=== PATIENT | female | born 1955 | race Hispanic/Latino ===

== ENCOUNTER 2022-11-18 18:09 | Emergency (ER) | payer OTHER ==
[~2022-11-18] VITALS: Ht 161.3 cm; Wt 86.2 kg
[~2022-11-18 18:09] MED LIST: AMLODIPINE BESYL5 MG PO; HYDROCODON-ACE1 EAC9 PO; LISINOPRIL10 MG PO; OZEMPIC0.25 MG/0. SC
[2022-11-18 20:34] LABS: BASOPHILS # (AUTO) 0.1 (0.0-0.1); BASOPHILS % 0.6 % (0.0-1.0); EOSINOPHILS # (AUTO) 0.3 (0.0-0.4); EOSINOPHILS % 3.1 % (0.0-6.0); HEMATOCRIT 31.8 % (34.2-44.1); HEMOGLOBIN 10.5 g/dL (12.0-16.0); LYMPHOCYTES # (AUTO) 2.3 (1.0-3.2); LYMPHOCYTES % 28.1 % (18.0-39.1); MEAN CORPUSCULAR HEMOGLOBIN 30.2 pg (28-32); MEAN CORPUSCULAR VOLUME 91.4 fL (81-99); MONOCYTES # (AUTO) 0.6 (0.2-0.8); MONOCYTES % 6.8 % (4.4-11.3); NEUTROPHILS % 60.9 % (38.7-80.0); PLATELET COUNT 306 x10e3/uL (140-360); RED BLOOD COUNT 3.48 x10e6/uL (3.6-5.1); RED CELL DISTRIBUTION WIDTH 12.4 % (11.7-14.4)
[2022-11-18 20:35] LABS: ALBUMIN/GLOBULIN RATIO 1.3 (0.8-2.0); CALCIUM 9.7 mg/dL (8.4-10.2); CREATININE, SERUM 0.73 mg/dL (0.57-1.11)
[2022-11-18 21:13] LABS: CLARITY,URINE CLOUDY (CLEAR); COLOR,URINE YELLOW (YELLOW)
[2022-11-18 21:14] LABS: KETONES,URINE NEGATIVE (NEGATIVE); LEUKOCYTE ESTERASE ,URINE 2+ (NEGATIVE); NITRITE,URINE POSITIVE (NEGATIVE); PROTEIN,URINE DIPSTICK 1+ (NEGATIVE); URINE UROBILINOGEN 0.2 mg/dL (0.2 - 1)
[2022-11-18 21:20] LABS: BACTERIA,URINE MANY /HPF; EPITHELIAL CELLS,URINE FEW /LPF; RBC,URINE 21-50 /HPF (0-5); WBC,URINE (MAN) 21-50 /HPF (0-5)
[2022-11-18] MEDS ORDERED: CEFDINIR300 MG PO (21:35)
[2022-11-18 21:48] VITALS: BP 136/55; PULSE 58; RESP 17; TEMP 98; O2SAT 99
== END 2022-11-18 22:08 | disposition home or self-care (01) ==
LOC: ER 18:16
DX: T83.091A Other mechanical complication of indwelling urethral catheter, initial encounter (principal); N39.0 Urinary tract infection, site not specified; I10 Essential (primary) hypertension; G93.39 Other post infection and related fatigue syndromes
CPT/HCPCS: 36415; 80053; 81001; 85025; 87086; 87186; 99283

== ENCOUNTER 2024-03-02 09:45 | Emergency (ER) | payer OTHER ==
[~2024-03-02] VITALS: Ht 162.6 cm; Wt 81.2 kg
[~2024-03-02 09:45] MED LIST changes: +CEFDINIR300 MG PO
[2024-03-02 09:51] VITALS: TEMP 97.9
[2024-03-02 10:10] LABS: BASOPHILS % 0.4 % (0.0-1.0); EOSINOPHILS # (AUTO) 0.1 (0.0-0.4); EOSINOPHILS % 1.1 % (0.0-6.0); HEMATOCRIT 40.2 % (34.2-44.1); HEMOGLOBIN 13.1 g/dL (12.0-16.0); LYMPHOCYTES # (AUTO) 1.4 (1.0-3.2); LYMPHOCYTES % 19.9 % (18.0-39.1); MEAN CORPUSCULAR HEMOGLOBIN 31.2 pg (28-32); MEAN CORPUSCULAR HGB CONC 32.6 g/dL (31-35); MEAN CORPUSCULAR VOLUME 95.7 fL (81-99); MONOCYTES # (AUTO) 0.3 (0.2-0.8); MONOCYTES % 4.5 % (4.4-11.3); NEUTROPHILS # (AUTO) 5.2 (2.1-6.9); NEUTROPHILS % 73.8 % (38.7-80.0); PLATELET COUNT 199 x10e3/uL (140-360); RED CELL DISTRIBUTION WIDTH 12.3 % (11.7-14.4); WHITE BLOOD COUNT 7.04 x10e3/uL (4.8-10.8)
[2024-03-02 10:13] LABS: CLARITY,URINE CLEAR (CLEAR); COLOR,URINE YELLOW (YELLOW); LEUKOCYTE ESTERASE ,URINE NEGATIVE (NEGATIVE); PH,URINE 5.5 (5 - 7)
[2024-03-02 10:14] LABS: BILIRUBIN,URINE NEGATIVE (NEGATIVE); GLUCOSE, URINE NEGATIVE (NEGATIVE); KETONES,URINE NEGATIVE (NEGATIVE); NITRITE,URINE NEGATIVE (NEGATIVE); PROTEIN,URINE DIPSTICK NEGATIVE (NEGATIVE); URINE UROBILINOGEN 0.2 mg/dL (0.2 - 1)
[2024-03-02 10:19] LABS: BACTERIA,URINE FEW /HPF; EPITHELIAL CELLS,URINE FEW /LPF; MUCUS,URINE MODERATE (RARE); RBC,URINE 0-5 /HPF (0-5); WBC,URINE (MAN) 0-5 /HPF (0-5)
[2024-03-02 10:21] LABS: INR 0.85; PROTHROMBIN TIME 12.1 seconds (11.9-14.5)
[2024-03-02 10:24] LABS: PARTIAL THROMBOPLASTIN TIME 32.4 seconds (23.8-35.5)
[2024-03-02 10:28] LABS: ALBUMIN 4.3 g/dL (3.5-5.0); ALBUMIN/GLOBULIN RATIO 1.3 (0.8-2.0); ANION GAP 13.1 mmol/L (8-16); BILIRUBIN,TOTAL 0.5 mg/dL (0.2-1.2); CALCIUM 9.7 mg/dL (8.4-10.2); CREATININE, SERUM 0.72 mg/dL (0.57-1.11); POTASSIUM 4.1 mmol/L (3.5-5.1); TOTAL PROTEIN 7.5 g/dL (6.5-8.1)
[2024-03-02 11:06] LABS: TROPONIN I 0.002 ng/mL (0-0.300)
[2024-03-02] MEDS ORDERED: SODIUM CHLORIDE 0.9% 1000ML 1,000 ML ONE (12:11)
[2024-03-02] MEDS: DIPHENHYDRAMINE HCL INJ 50 MG/ML VIAL IV ONE (12:24)
[2024-03-02] MEDS: KETOROLAC TROMETHAMINE 30 MG/ML VIAL IV STA (12:24)
[2024-03-02] MEDS: METOCLOPRAMIDE HCL 10 MG/2ML VIAL IV ONE (12:25)
[2024-03-02] MEDS: SODIUM CHLORIDE 0.9% 1000ML 1,000 ML IV ONE (12:26)
[2024-03-02] MEDS: SODIUM CHLORIDE FLUSH 10 ML SYR IV PRN (12:26)
[2024-03-02 12:27] VITALS: PULSE 59; RESP 17; O2SAT 97
== END 2024-03-02 13:45 | disposition home or self-care (01) ==
LOC: ER 09:48
DX: R20.2 Paresthesia of skin (principal); I10 Essential (primary) hypertension; G93.39 Other post infection and related fatigue syndromes; Z86.14 Personal history of Methicillin resistant Staphylococcus aureus infection
CPT/HCPCS: 36415; 70450; 71045; 80053; 81001; 83880; 84484; 85025; 85610; 85730; 93005; 99284; J1200; J1885; J2765; J7030